=== PATIENT | female | born 1950 | race Caucasian/White ===

== ENCOUNTER 2022-05-03 09:45 | Outpatient (RCR) | payer MEDICARE, BC, SELFPAY | END 2022-12-07 14:20 | disposition home or self-care (01) | PROVIDERS: PCP Family Medicine; Visit Provider Family Medicine | DX: M25.561 Pain in right knee (principal); G89.29 Other chronic pain; Z51.89 Encounter for other specified aftercare | CPT/HCPCS: 97110; 97140; 97162 ==

== ENCOUNTER 2022-05-17 11:56 | Day surgery (SDC) | payer MEDICARE, BC, SELFPAY ==
[2022-05-17] MEDS: TETRACAINE 0.5% OPHTH 1 DROP EYE-RIGHT ×2 (12:11→12:15)
[2022-05-17] MEDS: KETOROLAC OPHTH 0.5% 1 DROP EYE-RIGHT ×2 (12:14→12:18)
[2022-05-17 12:21] VITALS: BMI 25.3
[2022-05-17 12:24] VITALS: BP 130/69; PULSE 70; RESP 18; TEMP 36.6; O2SAT 98
[2022-05-17] MEDS: SODIUM CHLORIDE 0.9 % (FLUSH) 10 ML SYRINGE IVF (12:24)
[2022-05-17] MEDS: TETRACAINE 0.5% OPHTH 2 DROP EYE-RIGHT (12:47)
[2022-05-17] MEDS: BALANCED SALT IRRIG SOLN 15 ML EYE-RIGHT (12:53)
--- NOTE | 2022-05-17 13:01 | W.ANESCHARGE ---
Anesthesia Charges Start Date/Time Anesthesia Start Date: 05/17/22 Anesthesia Start Time: 12:44 Stop Date/Time Anesthesia Stop Date: 05/17/22 Anesthesia Stop Time: 13:15 Summary Emergency: No Extremes of Age: Over 68-CPT 70612
[2022-05-17 13:17] VITALS: BP 119/71; PULSE 57; RESP 16; TEMP 36.1; O2SAT 99
--- NOTE | 2022-05-17 15:13 | P.PCN_ITS ---
Procedure Note Date Seen: 05/17/22 Will [facility] bill your pro fee for this procedure?: Yes Procedure Description: SURGEON: Melissa Garcia MD PREOPERATIVE DIAGNOSIS: Nuclear sclerotic cataract, right eye. POSTOPERATIVE DIAGNOSIS: Nuclear sclerotic cataract, right eye. NAME OF OPERATION: Phacoemulsification of cataract with posterior chamber intraocular lens implantation in the right eye. ANESTHESIA: Topical. ESTIMATED BLOOD LOSS: Less than 2 cc. COMPLICATIONS: None. PATHOLOGY SPECIMEN: None. INDICATIONS: See consult note for details. The risks, benefits and alternatives of the procedure were explained to the patient, who elected to proceed and signed informed consent to do so. PROCEDURE: The patient was brought to the pre-holding area where the right eye was identified as the operative eye. I placed my initials above this eye. The patient received eye drops consisting of 0.5% tetracaine, 1% tropicamide, 10% phenylephrine, and 0.5% ketorolac. The patient was then brought to the operating room where the right eye was again identified as the operative eye. The eye was prepped with Betadine and draped in the usual sterile ophthalmic fashion. A #15 super-sharp blade was used to create a paracentesis site. 1% non-preserved intracameral lidocaine was injected into the anterior chamber. Endocoat was injected into the anterior chamber. A 2.4 mm keratome was used to create a three-plane self-sealing incision 1 mm anterior to the temporal limbus. A cystotome was used to create an anterior capsular leaflet. The Utrata forceps were used to extend this to form a continuous curvilinear capsulorrhexis. Hydrodissection was performed. The cataract was removed with phacoemulsification using the rtmado-mqa-eqysypv technique. The irrigation and aspiration tip was used to remove the remaining cortex. Healon was injected into the capsular bag. An CHERRIE ZCB00 intraocular lens of 22.0 diopters was injected into the capsular bag. The irrigation and aspiration tip was used to remove the remaining viscoelastic. Balanced salt solution on a cannula was used to hydrate the wound, and the wound was found to be watertight. The pupil was noted to be round. DISPOSITION: The patient was taken to the recovery room and discharged to home in stable condition. The patient was instructed to call me or go to the emergency department with any sudden change, including dramatic loss of vision, severe pain in the eye or eyebrow region, nausea, or vomiting. The patient will follow up in the clinic tomorrow morning. Surgeon: eMlissa Garcia MD
== END 2022-05-17 13:45 | disposition home or self-care (01) ==
PROVIDERS: PCP Family Medicine; Visit Provider Ophthalmology
PROC: (CPT 66984; principal; 2022-05-17 12:00)
DX: H25.11 Age-related nuclear cataract, right eye (principal)
CPT/HCPCS: 66984; 00142; 99100; A9270; J2250; J2405; J3010; V2632

== ENCOUNTER 2022-05-31 11:18 | Day surgery (SDC) | payer MEDICARE, BC, SELFPAY ==
[2022-05-31] MEDS: BALANCED SALT IRRIG SOLN 15 ML EYE-LEFT (12:00)
[2022-05-31] MEDS: TETRACAINE 0.5% OPHTH 2 DROP EYE-LEFT (12:00)
[2022-05-31] MEDS: TETRACAINE 0.5% OPHTH 1 DROP EYE-LEFT ×2 (12:00→12:05)
[2022-05-31] MEDS: KETOROLAC OPHTH 0.5% 1 DROP EYE-LEFT ×2 (12:00→12:05)
[2022-05-31 12:14] VITALS: BP 126/68; PULSE 72; RESP 16; TEMP 36.7; O2SAT 100
[2022-05-31] MEDS: SODIUM CHLORIDE 0.9 % (FLUSH) 10 ML SYRINGE IVF (12:20)
[2022-05-31 12:21] VITALS: BMI 25.3
--- NOTE | 2022-05-31 13:17 | PM.PROC ---
Procedure Note Date Seen: 05/31/22 Will [facility] bill your pro fee for this procedure?: Yes Procedure Description: SURGEON: Melissa Garcia MD PREOPERATIVE DIAGNOSIS: Nuclear sclerotic cataract, left eye. POSTOPERATIVE DIAGNOSIS: Nuclear sclerotic cataract, left eye. NAME OF OPERATION: Phacoemulsification of cataract with posterior chamber intraocular lens implantation in the left eye. ANESTHESIA: Topical. ESTIMATED BLOOD LOSS: Less than 2 cc. COMPLICATIONS: None. PATHOLOGY SPECIMEN: None. INDICATIONS: See consult note for details. The risks, benefits and alternatives of the procedure were explained to the patient, who elected to proceed and signed informed consent to do so. PROCEDURE: The patient was brought to the pre-holding area where the left eye was identified as the operative eye. I placed my initials above this eye. The patient received eye drops consisting of 0.5% tetracaine, 1% tropicamide, 10% phenylephrine, and 0.5% ketorolac. The patient was then brought to the operating room where the left eye was again identified as the operative eye. The eye was prepped with Betadine and draped in the usual sterile ophthalmic fashion. A #15 super-sharp blade was used to create a paracentesis site. 1% non-preserved intracameral lidocaine was injected into the anterior chamber. Endocoat was injected into the anterior chamber. A 2.4 mm keratome was used to create a three-plane self-sealing incision 1 mm anterior to the temporal limbus. A cystotome was used to create an anterior capsular leaflet. The Utrata forceps were used to extend this to form a continuous curvilinear capsulorrhexis. Hydrodissection was performed. The cataract was removed with phacoemulsification using the oevxoo-kqi-hmewfhp technique. The irrigation and aspiration tip was used to remove the remaining cortex. Healon was injected into the capsular bag. An CHERRIE ZCB00 intraocular lens of 22.0 diopters was injected into the capsular bag. The irrigation and aspiration tip was used to remove the remaining viscoelastic. Balanced salt solution on a cannula was used to hydrate the wound, and the wound was found to be watertight. The pupil was noted to be round. DISPOSITION: The patient was taken to the recovery room and discharged to home in stable condition. The patient was instructed to call me or go to the emergency department with any sudden change, including dramatic loss of vision, severe pain in the eye or eyebrow region, nausea, or vomiting. The patient will follow up in the clinic tomorrow morning. Surgeon: Melissa Garcia MD
[2022-05-31 13:20] VITALS: BP 123/62; PULSE 64; RESP 16; TEMP 36.2; O2SAT 97
--- NOTE | 2022-05-31 13:22 | W.ANESCHARGE ---
Anesthesia Charges Start Date/Time Anesthesia Start Date: 05/31/22 Anesthesia Start Time: 11:21 Stop Date/Time Anesthesia Stop Date: 05/31/22 Anesthesia Stop Time: 11:55 Summary Emergency: No Extremes of Age: Over 68-CPT 87085
[2022-05-31] MEDS: ACETAMINOPHEN 500 MG TABLET 1000 MG PO (13:30)
== END 2022-05-31 14:00 | disposition home or self-care (01) ==
PROVIDERS: PCP Family Medicine; Visit Provider Ophthalmology
PROC: (CPT 66984; principal; 2022-05-31 12:00)
DX: H25.12 Age-related nuclear cataract, left eye (principal)
CPT/HCPCS: 66984; 142; 99100; A9270; J2250; J3010; V2632

== ENCOUNTER 2023-09-26 10:51 | Day surgery (SDC) | payer MEDICARE, BC, SELFPAY ==
[2023-09-26] VITALS (25 sets, daily range): BP systolic 104–152; BP diastolic 53–87; PULSE 54–76; RESP 11–18; TEMP 36.1–36.6; O2SAT 94–100; BMI 27.3
[2023-09-26] MEDS: OXYCODONE (CR) 10 MG TAB.ER.12H PO (11:12)
[2023-09-26] MEDS: ACETAMINOPHEN 500 MG TABLET 1000 MG PO ×2 (11:12→18:09)
--- NOTE | 2023-09-26 11:36 | W.PM.H&PU ---
History & Physical Update History & Physical Update H&P Reviewed and patient assessed: No changes noted
--- NOTE | 2023-09-26 11:37 | CRLHL7_ITS ---
For Patients: As a result of the Century Cures Act, medical imaging exams and procedure reports are released immediately into your electronic medical record. You may view this report before your referring provider. If you have questions, please contact your health care provider. INDICATION: Follow up knee replacement. TECHNIQUE: Two views of the left knee performed portably and postoperatively. COMPARISON: Pre-surgical images June 15, 2023. FINDINGS: Left total knee arthroplasty. Patellar resurfacing. The components are adequately aligned and well seated. Air within the soft tissues and joint space related to the surgery. IMPRESSION: Postsurgical change from a left total knee arthroplasty. The components are adequately aligned and well seated. Dictated by Tello Benavides MD @ 09/27/2023 10:21:10 AM (Electronically Signed)
[2023-09-26] MEDS: LACTATED RINGERS 1000 ML 1,000 ML 100 ML IV ×2 (12:00→14:17)
--- NOTE | 2023-09-26 12:19 | SUR.PREOP ---
TIME?OUT:?1221 PT/RN/MDA?VERIFICATION?OF?SURGICAL?SITE,?PROCEDURE,?AND?CONSENT OBTAINED?PRIOR?TO?INVASIVE?PROCEDURE.
[2023-09-26] MEDS: MIDAZOLAM HCL 1 MG/ML inj IVP (12:23)
[2023-09-26] MEDS: fentaNYL 100 MCG/2 ML inj IVP (12:26)
--- NOTE | 2023-09-26 12:35 | P.NB_ITS ---
Nerve Block Nerve Block Time Seen by Provider: 12:25 Date Seen: 09/26/23 Type of block requested by surgeon for post-operative analgesia: adductor canal Side: left Time out performed: Yes Verification of patient name: Yes Verification of date of : Yes Site marking: site marked Name of person performing procedure: Gomez Continuous monitoring Was continuous monitoring of O2 sat, B/P, electronic device monitor, recorded every 15 minutes?: Yes Procedure Checklist: sterile prep, needles and gloves Ultrasound guided. Images saved: Yes Medications given in 5ml increments after negative aspiration: Ropivicaine %: 0.5 mL: 20 Needle gauge: 20 Decadron (mg): 10 Precedex (mcg): 25 Patient tolerated procedure well: Yes Additional comments: Needle noted adjacent to nerve Block Charges Block Charge (with Pro Fee): Femoral Nerve Use of Ultrasound Machine for Block: Yes- US Guidance/pain block
--- NOTE | 2023-09-26 12:36 | W.PM.NB ---
Nerve Block Nerve Block Time Seen by Provider: 12:25 Date Seen: 09/26/23 Type of block requested by surgeon for post-operative analgesia: geniculars Side: left Time out performed: Yes Verification of patient name: Yes Verification of date of : Yes Site marking: site marked Name of person performing procedure: Gomez Continuous monitoring Was continuous monitoring of O2 sat, B/P, environmental monitoring specialist, recorded every 15 minutes?: Yes Procedure Checklist: sterile prep, needles and gloves Medications given in 5ml increments after negative aspiration: Ropivicaine %: 0.5 mL: 9 Needle gauge: 25 Patient tolerated procedure well: Yes Block Charges Block Charge (with Pro Fee): Genicular Nerve Block Use of Ultrasound Machine for Block: No
--- NOTE | 2023-09-26 12:36 | W.ANESCHARGE ---
Anesthesia Charges Start Date/Time Anesthesia Start Date: 09/26/23 Anesthesia Start Time: 13:32 Stop Date/Time Anesthesia Stop Date: 09/26/23 Anesthesia Stop Time: 15:27 Summary Extremes of Age - Over 70 or under 1: MDA
[2023-09-26] MEDS: CEFAZOLIN 2 GM in 0.9 % SODIUM CHLORIDE Mini-bag 100 ML IVPB ×2 (13:51→18:09)
[2023-09-26] MEDS: TRANEXAMIC ACID 100 MG/ML INJ 1000 MG IV (13:51)
--- NOTE | 2023-09-26 14:47 | PM.ORPRC ---
Procedure Note Date of procedure: 09/26/23 Procedure: PREOPERATIVE DIAGNOSIS: 1. Left knee osteoarthritis, primary, severe POSTOPERATIVE DIAGNOSIS: 1. Left knee osteoarthritis, primary, severe PROCEDURE: 1. Left total knee arthroplasty SURGEON: Jamil Browne MD. RECORD PRESSMAN: AMADO Saba - Of note, a skilled equal opportunity assistant was critical for this case to aid in patient positioning, tissue retraction, limb manipulation/positioning, and closure. ANESTHESIA: Spinal anesthetic EBL: 50ml IMPLANTS: DePuy J&J all cemented TKA - Attune PS femur size 6 narrow, size 4 tibia, 5 poly spacer, 38 mm patella TOURNIQUET: 90 min at 300 torr COMPLICATIONS: None evident INDICATIONS: The patient is a pleasant 73-year-old female who has experienced severe left knee pain and difficulty bearing weight. Workup included x-rays which revealed severe osteoarthrosis in the knee. Given the deformity, the dysfunction, and the pain, as well as the failure of nonoperative management, recommendation was made for surgery. FINDINGS: Full-thickness chondral loss diffusely throughout the lateral compartment and patellofemoral compartment. To a lesser degree medial compartment. Large effusion upon entering the joint. DESCRIPTION OF PROCEDURE: Following a thorough discussion of risks, benefits, and alternatives consent was obtained and the left knee was marked. The patient was brought to the operating room and placed supine on the operating table. Induction of anesthesia was undertaken. 2 g IV Ancef and 1 g tranexamic acid was administered within 1 hr of incision preoperatively. Proper time-out was performed identifying proper patient, site, procedure. The operative extremity was prepped and draped in the appropriate sterile fashion using ChloraPrep after the patient was positioned supine with all bony prominences well padded. A longitudinal, anterior, midline skin incision was made starting approximately 3cm proximal to the superior pole of the patella and advanced distal to the tibial tubercle. A median parapatellar arthrotomy was created. A medial subperiosteal sleeve was created with knife, baeza elevator and curved osteotome. The retropatellar fatpad was resected and the synovium in the suprapatellar pouch excised to visualize the anterior femoral cortex. Femoral preparation was performed via an intramedullary guide. Step drill allowed access into the femoral canal. The distal cutting guide was placed with 5? of valgus and 10 mm cut on the distal femur. Femur was sized using a posterior referencing guide (although trans epicondylar access and Dayanna's line was also referenced) in 3? of external rotation. This found have a best fit with the sizing noted above. The 4 in 1 cutting block was then placed, and the distal femur shaped accordingly. The box cut was then created and the trial implant inserted to confirm appropriate fit. We turned our attention to the proximal tibia. Extramedullary guide was utilized for cutting with the goal of being 90 degree cut from the mechanical axis of the tibia in the varus/valgus plane utilizing tibial crest as the primary alignment. Initially a 2 mm resection was performed from the medial tibial plateau. Ultimately, balancing was achieved in both flexion and extension in both varus and valgus. The knee was able to achieve full extension as well comfortably. The patella was initially measured and found have a thickness of 20 mm. It was resected back to approximately 14 mm. It was sized to be a best fit with as noted above. This was drilled, trial placed. All trials were placed and found to have an excellent stability and balance. At this stage, trial implants were removed, the knee was thoroughly irrigated with normal saline, and the cement was mixed. After irrigation, the knee was thoroughly dried, and cement placed, with the real tibial and femoral implants placed along with the patella. Trial poly spacer was placed and confirmed to have excellent range of motion and full extension, and the real poly spacer opened and inserted. All extra cement was removed, and a 3 min Betadine soak performed. Finally, a final irrigation round with normal saline was performed. Closure performed with 0 PDS and #0 Stratafix for the quad tendon/retinaculum. 2-0 Vicryl/Stratafix for the subcutaneous and 4-0 Monocryl for subcuticular closure. Dressings were applied and the patient was awoken from anesthesia after the tourniquet deflated and transferred the PACU in stable condition. A skilled equal opportunity assistant was critical for this case to aid in patient positioning, tissue retraction, bone exposure, limb manipulation/positioning, patient safety, and closure. PLAN: 1. Weight bear as tolerated operative extremity. 2. 23 hr perioperative antibiotics. 3. Ice. 4. PT/OT consults for ambulation assistance/mobility education. 5. Social work consult for discharge planning. 6. DVT prophylaxis with at SCDs, Ancelmo Hose, and aspirin twice daily.
--- NOTE | 2023-09-26 15:26 | P.ANES_ITS ---
Anesthesia Charges Start Date/Time Anesthesia Start Date: 09/26/23 Anesthesia Start Time: 13:32 Stop Date/Time Anesthesia Stop Date: 09/26/23 Anesthesia Stop Time: 15:27 Summary Extremes of Age - Over 70 or under 1: [employer]
[2023-09-26] MEDS: LACTATED RINGERS 1000 ML 1,000 ML 75 ML IV (17:04)
--- NOTE | 2023-09-26 18:52 | PM.IMCN1 ---
Date of Consult Patient: Janie Patient Consult date: 09/26/23 Requesting Physician: Orthopedics Primary Care Provider: Regina Vee, Consult Narrative Narrative: Camille Herman is a 73 year old female admitted to the hospital for left total knee arthroplasty. Procedures performed by Dr. Browne. There were no complications. Postoperatively she reports being quite chilled and is being warmed with a Latisha Hugger. She has also had nausea without vomiting. Pain control is currently adequate. She reports preoperatively she was doing well. She had a recent upper respiratory illness with nasal congestion rhinorrhea and cough. She had no fever. She reports feeling much better from that prior to surgery. No previous problems with surgery or anesthesia. Review of Systems Narrative: Recent URI is largely resolved otherwise no recent illness PFSH [facility] Medical History (Updated 09/26/23 @ 19:00 by Toney Luna MD) Restless legs ?G25.81 - Restless legs syndrome (ICD-10) Primary osteoarthritis of left knee ?M17.12 - Unilateral primary osteoarthritis, left knee (ICD-10) Hx of colonic polyps ?Z86.010 - Personal history of colonic polyps (ICD-10) Osteopenia of spine ?M85.88 - Other specified disorders of bone density and structure, other site (ICD-10) Atypical meningioma of brain ?D42.0 - Neoplasm of uncertain behavior of cerebral meninges (ICD-10) Hyperlipidemia ?E78.5 - Hyperlipidemia, unspecified (ICD-10) Hypertension ?I10 - Essential (primary) hypertension (ICD-10) Meningioma ?D32.9 - Benign neoplasm of meninges, unspecified (ICD-10) Surgical History S/P total left hip arthroplasty ?Z96.642 - Presence of left artificial hip joint (ICD-10) History of open reduction and internal fixation (ORIF) procedure ?Z98.890 - Other specified postprocedural states (ICD-10) Hx of colonoscopy ?Z98.890 - Other specified postprocedural states (ICD-10) Hx of section ?Z98.891 - History of uterine scar from previous surgery (ICD-10) History of back surgery ?Z98.890 - Other specified postprocedural states (ICD-10) Hx of appendectomy ?Z90.49 - Acquired absence of other specified parts of digestive tract (ICD-10) History of bilateral fallopian tube excision ?Z90.79 - Acquired absence of other genital organ(s) (ICD-10) Family History (Updated 09/26/23 @ 18:57 by Toney Luna MD) Father High blood pressure Prostate cancer Mother Osteoporosis Alzheimers disease Social History (Updated 09/26/23 @ 18:58 by Toney Luna MD) Narrative: She lives with her . She has no steps to get a into around her house. She does not smoke. She drinks 3-5 glasses of wine per week What is your current living situation?: I presently have a place to live Problems where you live: no known problems In the past 12 months, utilities in danger of being shut off: no In past 12 months, lack of transportation kept you from medical appts, meetings, work, or getting things needed for daily living: no In the past 12 mos, have been you worried that your food would run out before you had money to buy more?: never true In the past 12 mos, the food you bought just didn't last and you didn't have money to buy more?: never true Smoking Status: Never smoker How often do you have a drink containing alcohol: monthly or less AUDIT-C Alcohol total score: 1 Non-prescribed substance use: denies use Caffeine: Yes How often does anyone, including family, friends and others, physically hurt you: never How often does anyone, including family, friends and others, insult or talk down to you: never How often does anyone, including family, friends and others, threaten you with harm: never How often does anyone, including family, friends and others, scream or curse at you: never Meds Home Medications and Allergies Home Medications Medication Instructions Recorded Confirmed Type atorvastatin 20 mg tablet 20 mg PO DAILY 05/15/22 09/26/23 History cholecalciferol (vitamin D3) 25 1,000 unit PO DAILY 05/15/22 09/26/23 History mcg (1,000 unit) capsule lisinopril 5 mg tablet 5 mg PO DAILY 05/15/22 09/26/23 History acetaminophen 500 mg tablet 500 mg PO Q6H PRN 06/15/23 09/26/23 History (Tylenol Extra Strength) calcium carbonate 600 mg calcium 600 mg PO DAILY 09/26/23 09/26/23 History (1,500 mg) tablet (Calcium) ferrous sulfate 325 mg (65 mg 325 mg PO Q7D 09/26/23 09/26/23 History iron) tablet (FeroSul) Allergies Allergy/AdvReac Type Severity Reaction Status Date / Time No Known Allergies Allergy Unknown Verified 06/15/23 09:12 Exam Narrative: Exam Narrative: She is alert and appears in no distress. Oropharynx normal. Neck is supple without mass or adenopathy. Respirations are clear to auscultation. Cardiovascular: S1, S2, regular rate and rhythm. No murmur gallop or rub. Abdomen: Bowel sounds active. Abdomen is soft without tenderness or mass. Lower extremities without edema. Intact pulses sensation and strength in her feet and ankles. Const: Vital Signs, click to edit/add: Vital Signs - 24 hr 09/26/23 12:00 09/26/23 12:20 09/26/23 12:25 Temperature 97.8 F Pulse Rate 69 64 69 Respiratory Rate 16 16 16 Blood Pressure 148/77 H 152/87 H 145/62 H Pulse Oximetry 97 100 98 Oxygen Delivery Me thod Room Air Nasal Cannula Nasal Cannula Oxygen Flow Rate 3 3 09/26/23 12:30 09/26/23 12:40 09/26/23 12:50 Temperature Pulse Rate 61 70 60 Respiratory Rate 14 14 14 Blood Pressure 135/60 122/59 L 120/65 Pulse Oximetry 99 99 98 Oxygen Delivery Me thod Nasal Cannula Nasal Cannula Nasal Cannula Oxygen Flow Rate 3 3 3 09/26/23 13:00 09/26/23 13:10 09/26/23 15:24 Temperature 96.9 F L Pulse Rate 58 L 59 L 66 Respiratory Rate 14 14 12 Blood Pressure 114/65 119/63 107/56 L Pulse Oximetry 98 99 95 Oxygen Delivery Me thod Nasal Cannula Nasal Cannula Room Air Oxygen Flow Rate 3 3 09/26/23 15:30 09/26/23 15:35 09/26/23 15:40 Temperature Pulse Rate 57 L 57 L 61 Respiratory Rate 11 L 12 14 Blood Pressure 104/53 L 106/64 112/67 Pulse Oximetry 97 98 97 Oxygen Delivery Me thod Oxygen Flow Rate 09/26/23 15:45 09/26/23 15:50 Temperature 97.0 F L Pulse Rate 55 L 54 L Respiratory Rate 12 12 Blood Pressure 122/60 114/58 L Pulse Oximetry 98 97 Oxygen Delivery Me thod Oxygen Flow Rate Documenting provider has reviewed patient's vital signs: yes Assessment and Plan Assessment and plan (1) S/P total left hip arthroplasty: Problem comment: Dr. Browne 09/26/2023 without complications Status: Acute (2) Hypothermia associated with surgery: Problem comment: Resolved with Latisha Hugger Status: Acute (3) Hypertension: Problem comment: Resume home blood pressure medications as tolerated Status: Acute Plan Patient is admitted for postoperative management of pain and disability from surgery and monitoring of chronic medical problems. Anticipate discharge to home tomorrow for outpatient follow-up. Total time spent today is 30 minutes in coordination of care and discussing with patient other providers management of postoperative cares
[2023-09-26] MEDS: OXYCODONE 5 MG TABLET PO (19:15)
[2023-09-26] MEDS: ONDANSETRON 2 MG/ML inj 4 MG IVP (20:01)
--- NOTE | 2023-09-26 20:21 | PC.NURSE ---
End of shift-- Pleasant and cooperative, alert and oriented pt. arrived from PACU at approximately 1600. VSS and pt is afebrile. SPO2 maintained >94% on RA. She rated pain as high as 2 out of 10 this evening and was given Oxycodone once in addition to scheduled Tylenol. Dressing to left knee is C/D/I and CMS WNL. Cryocuff in place. LS CTA. BS+ x4. Pt initially c/o nausea that faded quickly and again c/o nausea with ambulation. She was given Zofran with stated relief. She was up to the chair with assist of 1, belt and walker and tolerated it well. was at bedside this evening and appears loving and supportive. Report to KENNY Hernandez.
[2023-09-26] MEDS: SENNOSIDES 1 TAB TABLET 2 TAB PO (21:21)
[2023-09-26] MEDS: ASPIRIN 81 MG TABLET EC PO (21:21)
[2023-09-27] MEDS: OXYCODONE 5 MG TABLET PO ×5 (01:12→11:00)
[2023-09-27 02:00] VITALS: BP 131/68; PULSE 71; RESP 16; TEMP 36.8; O2SAT 97
[2023-09-27] MEDS: CEFAZOLIN 2 GM in 0.9 % SODIUM CHLORIDE Mini-bag 100 ML IVPB ×2 (02:33→10:08)
[2023-09-27] MEDS: ACETAMINOPHEN 500 MG TABLET 1000 MG PO (04:59)
--- NOTE | 2023-09-27 06:24 | PC.NURSE ---
END OF SHIFT NOTE: PT PLEASANT AND COOPERATIVE WITH CARES. A&Ox3. PT RATES LEFT KNEE PAIN 3-9/10 WITH RELIEF FROM ACTIVE ICE, ELEVATION, PRN MEDICATION (SEE EMAR). DRESSING TO LEFT KNEE C/D/I. PT AMBULATES TO BATHROOM WITH WALKER, GB, A1. PT VOICES CONCERN OVER PAIN MANAGEMENT WHILE AT HOME WITH HELP OF .
[2023-09-27 06:46] LABS: Hematocrit 35.5 % (33.0-51.0); Hemoglobin* 11.5 gm/dL (12.0-16.0); Immature Granulocytes Abs Auto 0.02 K/uL (0.00-0.30); Immature Granulocytes Pct Auto 0.2 %; Lymphocytes Percent Auto 8.6 % (20-44); Mean Corpuscular HGB Conc 32 gm/dL (32-36); Mean Corpuscular Hemoglobin 30 pg (26-34); Mean Corpuscular Volume 92 fL (80-100); Monocytes Percent Auto 4.3 % (0.0-11.0); Neutrophils Percent Auto 86.9 % (42.0-72.0); Platelet Count* 268 K/uL (140-440); RDW Coefficient of Variation % 12.1 % (11.5-15.5); Red Blood Count 3.85 m/uL (4.00-5.20); White Blood Count* 10.45 K/uL (4.50-11.00)
[2023-09-27 06:52] LABS: Slide Review Reflex No
[2023-09-27 07:06] LABS: Potassium* 3.9 mmol/L (3.6-5.1); Sodium* 136 mmol/L (135-149)
[2023-09-27 07:09] LABS: Creatinine* 0.4 mg/dL (0.5-1.5); Estimated Glomerular Filt Rate 103 ml/min
[2023-09-27 07:10] LABS: Blood Urea Nitrogen* 16 mg/dL (7-30)
[2023-09-27 07:50] VITALS: BP 137/70; PULSE 68; RESP 18; TEMP 36.6; O2SAT 96
[2023-09-27] MEDS: ATORVASTATIN 10 MG TABLET 20 MG PO (08:37)
[2023-09-27] MEDS: SENNOSIDES 1 TAB TABLET 2 TAB PO (08:38)
[2023-09-27] MEDS: ASPIRIN 81 MG TABLET EC PO (08:41)
[2023-09-27 08:49] VITALS: O2SAT 96
--- NOTE | 2023-09-27 09:53 | PM.ORPN ---
Subjective Subjective Date Seen: 09/27/23 Principal diagnosis: Status postop day 1 left total knee arthroplasty Interval history: Patient reports doing well. No acute events over night. Patient was having more pain initial day of surgery, which is now improved. Pain managed with scheduled and PRN medications, ice. Per staff, patient has not wanted to move much due to pain. DVT prophylaxis: 81 mg aspirin by mouth twice daily, bilateral knee high Ancelmo stockings, SCDs, walking. Denies fevers, chills, aches, N/V, CP, SOB/FINNEY, or lightheadedness. No flatus to date. Ortho Exam Narrative Exam Narrative: -Patient appears comfortable; no apparent acute distress -Alert and oriented times 3 -Operative knee mildly swollen; soft tissues supple; no ecchymosis; no erythematous streaking Warmth appropriate -Surgical dressing clean, dry, intact; no drainage -Bilateral calfs soft; no significant swelling, edema, tenderness, erythema, discoloration, warmth, or palpable cords -2+ DP/PT pulses, intact dermatomes and myotomes distally (5/5 strength) Const Vital Signs, click to edit/add: Vital Signs - 24 hr 09/26/23 12:00 09/26/23 12:20 09/26/23 12:25 Temperature 97.8 F Pulse Rate 69 64 69 Pulse Rate [Right Pulse Oximeter] Respiratory Rate 16 16 16 Blood Pressure 148/77 H 152/87 H 145/62 H Blood Pressure [Left Arm] Pulse Oximetry 97 100 98 Oxygen Delivery Method Room Air Nasal Cannula Nasal Cannula Oxygen Flow Rate 3 3 09/26/23 12:30 09/26/23 12:40 09/26/23 12:50 Temperature Pulse Rate 61 70 60 Pulse Rate [Right Pulse Oximeter] Respiratory Rate 14 14 14 Blood Pressure 135/60 122/59 L 120/65 Blood Pressure [Left Arm] Pulse Oximetry 99 99 98 Oxygen Delivery Method Nasal Cannula Nasal Cannula Nasal Cannula Oxygen Flow Rate 3 3 3 09/26/23 13:00 09/26/23 13:10 09/26/23 15:24 Temperature 96.9 F L Pulse Rate 58 L 59 L 66 Pulse Rate [Right Pulse Oximeter] Respiratory Rate 14 14 12 Blood Pressure 114/65 119/63 107/56 L Blood Pressure [Left Arm] Pulse Oximetry 98 99 95 Oxygen Delivery Method Nasal Cannula Nasal Cannula Room Air Oxygen Flow Rate 3 3 09/26/23 15:30 09/26/23 15:35 09/26/23 15:40 Temperature Pulse Rate 57 L 57 L 61 Pulse Rate [Right Pulse Oximeter] Respiratory Rate 11 L 12 14 Blood Pressure 104/53 L 106/64 112/67 Blood Pressure [Left Arm] Pulse Oximetry 97 98 97 Oxygen Delivery Method Oxygen Flow Rate 09/26/23 15:45 09/26/23 15:50 09/26/23 16:15 Temperature 97.0 F L 96.9 F L Pulse Rate 55 L 54 L Pulse Rate [Right Pulse Oximeter] 56 L Respiratory Rate 12 12 16 Blood Pressure 122/60 114/58 L Blood Pressure [Left Arm] 121/64 Pulse Oximetry 98 97 98 Oxygen Delivery Method Room Air Oxygen Flow Rate 09/26/23 16:30 09/26/23 17:00 09/26/23 17:05 Temperature 96.9 F L 96.9 F L Pulse Rate 56 L Pulse Rate [Right Pulse Oximeter] 58 L 60 Respiratory Rate 16 16 16 Blood Pressure Blood Pressure [Left Arm] 132/69 135/72 119/66 Pulse Oximetry 99 96 Oxygen Delivery Method Room Air Room Air Room Air Oxygen Flow Rate 09/26/23 17:15 09/26/23 17:45 09/26/23 18:15 Temperature 97.6 F 97.6 F Pulse Rate Pulse Rate [Right Pulse Oximeter] 62 62 73 Respiratory Rate 16 16 16 Blood Pressure Blood Pressure [Left Arm] 127/65 118/55 L 142/63 H Pulse Oximetry 97 97 97 Oxygen Delivery Method Room Air Room Air Room Air Oxygen Flow Rate 09/26/23 19:00 09/26/23 20:00 09/26/23 21:20 Temperature 97.2 F L Pulse Rate Pulse Rate [Right Pulse Oximeter] 71 76 66 Respiratory Rate 18 Blood Pressure Blood Pressure [Left Arm] 128/62 134/77 129/64 Pulse Oximetry 94 Oxygen Delivery Method Room Air Oxygen Flow Rate 09/26/23 23:00 09/26/23 23:00 09/27/23 02:00 Temperature 98.3 F Pulse Rate Pulse Rate [Right Pulse Oximeter] 66 71 Respiratory Rate 18 16 Blood Pressure Blood Pressure [Left Arm] 131/68 Pulse Oximetry 96 97 Oxygen Delivery Method Room Air Oxygen Flow Rate 09/27/23 07:50 09/27/23 08:49 Temperature 97.8 F Pulse Rate Pulse Rate [Right Pulse Oximeter] 68 Respiratory Rate 18 Blood Pressure Blood Pressure [Left Arm] 137/70 Pulse Oximetry 96 96 Oxygen Delivery Method Room Air Oxygen Flow Rate Assessment and Plan Assessment and plan (1) Status post total knee replacement, left: Problem details: Dr. Browne 09/26/2023 without complications Status: Acute (2) Hypothermia associated with surgery: Problem details: Resolved with Latisha Hugger Status: Acute (3) Hypertension: Problem details: Resume home blood pressure medications as tolerated Status: Acute Plan - Complete 23 hour perioperative antibiotics. - PT/OT consult for education and assistance. - Social work consult for discharge planning - Prescribed analgesics as needed - DVT prophylaxis: 81 mg aspirin by mouth twice daily, bilateral knee high Ancelmo Hose stockings and SCDs - Anticipation is for discharge to home with spouse, 09/27/2023 if the patient remains medically stable, pain is controlled, and they are safe with mobilization. * had a lengthy conversation with patient regarding focused therapy and diligent home exercise program to ensure good results from this left TKA. She states understanding.
--- NOTE | 2023-09-27 12:31 | PC.NURSE ---
shift note: vss stable. pt up sba/walker with steady gait. LS clr. pt instructed on dc orders. copies of dc instructions sent with pt. Belongings sent with pt after review. IV dc'd intact rt hand. Reviewed DVT s/s. Reviewed s/s of infection.
== END 2023-09-27 12:34 | disposition home or self-care (01) ==
LOC: OR 10:52 → MEDSURG 10:54
PROVIDERS: PCP Family Medicine; Visit Provider Orthopaedic Surgery Sports Medicine
PROC: (CPT 27447; principal; 2023-09-26 13:45)
DX: M17.12 Unilateral primary osteoarthritis, left knee (principal); G89.18 Other acute postprocedural pain; T88.51XA Hypothermia following anesthesia, initial encounter; I10 Essential (primary) hypertension
CPT/HCPCS: 27447; 01402; 36415; 64447; 64454; 73560; 76942; 82565; 84132; 84295; 84520; 85025; 97110; 97116; 97161; 97165; 97535; 99100; A9270; C1776; J0690; J1100; J2250; J2405; J2704; J2795; J3010; J7120

== ENCOUNTER 2023-12-12 12:30 | Outpatient (RCR) | payer MEDICARE, BC, SELFPAY ==
--- NOTE | 2023-09-19 12:17 | PT.OPEX ---
[facility] Eval initial evaluation -requires signature [facility] Start: 09/19/23 07:31 Freq: Status: Active Protocol: Document 09/19/23 07:33 GABRIELLE (Rec: 09/19/23 12:13 GABRIELLE [id number]) E-signed By Bunny Marks DPT Physical Therapy Outpatient Evaluation Insurance Information Recert Due Date 12/13/23 Insurance Name Medicare B Medical Diagnosis left TKA Left knee OA Treating Diagnosis L knee pain muscle weakness Referring MD Subjective Subjective Camille comes into clinic today for her pre op visit prior to her L TKA on 09/26/23. States the knee has been bugging her for awhile with walking and stairs have been the most troublesome, also has a hard time getting off the floor when playing with her grandchildren. Also notices limitations with incline walking. Lives in a one level home with her who will be helping after surgery. Date of Surgery (If applicable) 09/26/23 Current Work Status Retired Objective Other/Pertinent Objective GAIT/FUNCTIONAL MOBILITY ambulates with decreased pace in antalgic gait pattern increased UE support to perform sit to stands KNEE ROM L 6-115 LLE MMT: SLR flexion: performs with 3-5 degree extensor lag quad set: limited due to pain but can perform with moderate strength contraction. Assessment Assessment/Impression Pt is a 73yr old female who presents with concerns of L knee pain. Signs and symptoms likely indicating / consistent with OA. Patient also has notable objective findings including limited ROM, impaired balance, decreased strength also likely contributing to the problem. Patient is a good candidate for skilled therapy to target deficits described above. Skilled PT intervention is necessary for use of therapeutic exercise manual therapy, neuromuscular re- education, gait training, and therapeutic activity. Functional impairments include difficulty with: floor transfers walking standing stairs . See appropriate sections of PT eval for complete list of goals and POC . D/C plan and criteria is for pt to achieve the goals as listed below or until max rehab potential is met. Pt was agreeable with plan of care and goals established. Plan of Care Rehabilitation Potential Good Physical Therapy Goals TKA GOALS STG (within 5weeks ) 1) Pt will improve knee AROM at least 0 to 90 for improved sit to stand transfers 2) Pt will demonstrate negative extensor lag during straight leg raise exercise with ability to complete at least 15 reps with 5 sec hold to improve strength for ambulation 3) Patient will demonstrate/ report ability to walk for 15- 20 minutes w/SPC with pain level <1/10, to allow for community and household ambulation. LTG: (within 10 weeks) 1) Pt will be indep with HEP for residential management of pain/symptoms 2) Pt will improve knee AROM at least 0-120 for improved sit to stand transfers 3) Patient will ascend/descend at least 12 steps using single rail and reciprocal pattern to improve ease of mobility at home/community 4) Patient will demonstrate/ report ability to walk for 15- 20 minutes w/o AD with pain level <1/10, to allow for community and household ambulation. Coordination/Communication With Referral Source Treatment Plan/Direct Interventions Gait Training,Joint Mobilization,Manual Therapy, Self-Care/Home Management, Therapeutic Activities, Therapeutic Exercises Frequency/Duration 1-2 visits a week for 6-12 weeks Patient Will Be Discharged From Therapy Completion of LTG(s), Independent w/HEP Evaluation Billing Untimed Code Treatment Minutes 20 Complexity Low Certification Information Physician Comment/Change : Physician NPI Number #
--- NOTE | 2023-10-26 11:00 | PT.OPDNX ---
PT [facility] Daily Note PROGRESS NOTE PLEASE SIGN/PLEASE PROVIDE ORDER FOR ADDITIONAL 12 VISITS PER PATIENT REQUEST PT [facility] Daily Note Start: 09/19/23 07:31 Freq: Status: Active Protocol: Document 10/26/23 07:29 GABRIELLE (Rec: 10/26/23 11:00 GABRIELLE [id number]) E-signed By Bunny Marks DPT PT OP Daily Progress Note Visit Information Note Type Daily Note,Recert/Progress Note Visit Number 10 Insurance Information Recert Due Date 12/13/23 Insurance Name Medicare B Medical Diagnosis left TKA Left knee OA Treating Diagnosis L knee pain muscle weakness Referring MD Subjective Subjective Camille comes into clinic saying she is more sore after last visit overall , did have a couple nights better sleep. Does have some questions for me about her scar tissue and the 'ripping' sound from last visit. Home Exercise Home Exercise Comments [id number] Objective Other/Pertinent Objective KNEE AROM L 2-107,116 with op SLR flexion x 12- 5 degree extensor lag SAQ- needing increased hip flexion movement ot complete movement ambulates without AD, decreased pace, mild antalgic pattern Patient Instructed in Risks/Benefits Yes Therapeutic Exercise Therapeutic Exercise Minutes (minutes) 30 Therapeutic Exercise: To Restore nu step x 15 min lvl2-4 Functional Status resistance heel slides x 15 slr flexion x 12 knee ext stretch x 3 min saq x 15 hip add iso x 12 Manual Therapy Techniques Manual Therapy Minutes (minutes) 15 Manual Therapy Techniques STM quad adductors hamstring Pt PROM into flexion and extension Treatment Minutes Untimed Code Treatment Minutes 4 Timed Code Treatment Minutes 45 Total Treatment Time 49 Billing Units Manual Therapy Units 1 Therapeutic Activity Units 2 Assessment/Impression Assessment/Impression Patient is a 73 year old female that presents with L TKA. Patient has shown objective improvement in PT demonstrating decreased pain, increased range of motion, increased strength, and increased tolerance to activity. Patient continues to present with pain, decreased ROM, decreased strength, and decreased tolerance to activity. Patient would benefit from continued skilled PT services to address these issues and to maximize function. Plan of Care Physical Therapy Goals TKA GOALS STG (within 5weeks ) 1) Pt will improve knee AROM at least 0 to 90 for improved sit to stand transfers nm 2) Pt will demonstrate negative extensor lag during straight leg raise exercise with ability to complete at least 15 reps with 5 sec hold to improve strength for ambulation nm 3) Patient will demonstrate/ report ability to walk for 15- 20 minutes w/SPC with pain level <1/10, to allow for community and household ambulation.- met LTG: (within 10 weeks) 1) Pt will be indep with HEP for emt intermediate management of pain/symptoms 2) Pt will improve knee AROM at least 0-120 for improved sit to stand transfers 3) Patient will ascend/descend at least 12 steps using single rail and reciprocal pattern to improve ease of mobility at home/community 4) Patient will demonstrate/ report ability to walk for 15- 20 minutes w/o AD with pain level <1/10, to allow for community and household ambulation. Daily Plan of Care Continue per POC Discharge Note Date of First Visit for Therapy 09/19/23 Initial Primary Functional Limitations walking standing stairs Initial Pain Level 5-8/10
== END 2024-02-13 17:35 | disposition home or self-care (01) ==
PROVIDERS: PCP Family Medicine; Visit Provider Orthopaedic Surgery Sports Medicine
DX: M17.12 Unilateral primary osteoarthritis, left knee (principal); Z96.652 Presence of left artificial knee joint; Z51.89 Encounter for other specified aftercare
CPT/HCPCS: 97110; 97112; 97140; 97161; 97530; 97535

== ENCOUNTER 2024-07-18 07:21 | Outpatient (CLI) | payer MEDICARE, BC, SELFPAY ==
--- NOTE | 2024-07-18 12:53 | W.ANESCHARGE ---
Anesthesia Charges Start Date/Time Anesthesia Start Date: 07/18/24 Anesthesia Start Time: 13:04 Stop Date/Time Anesthesia Stop Date: 07/18/24 Anesthesia Stop Time: 13:35 Summary Extremes of Age - Over 70 or under 1: MDA
--- NOTE | 2024-07-18 13:36 | W.ANESCHARGE ---
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
== END 2024-07-18 07:22 | disposition home or self-care (01) ==
LOC: OP CLINIC 07:22
PROVIDERS: PCP Family Medicine; Visit Provider Internal Medicine Gastroenterology
DX: Z12.11 Encounter for screening for malignant neoplasm of colon (principal); Q43.8 Other specified congenital malformations of intestine; K57.30 Diverticulosis of large intestine without perforation or abscess without bleeding; Z86.0100 Personal history of colon polyps, unspecified
CPT/HCPCS: 00811; 00812; 45378; 99100; A9270; J2704

== ENCOUNTER 2024-09-22 08:42 | Day surgery (SDC) | payer MEDICARE, BC, SELFPAY ==
[2024-09-22] VITALS (23 sets, daily range): BP systolic 86–165; BP diastolic 44–98; PULSE 50–74; RESP 14–18; TEMP 36.1–36.6; O2SAT 96–100; BMI 27.0
--- NOTE | 2024-09-22 09:00 | W.PM.H&PU ---
History & Physical Update History & Physical Update H&P Reviewed and patient assessed: No changes noted
[2024-09-22] MEDS: OXYCODONE (CR) 10 MG TAB.ER.12H PO (09:05)
[2024-09-22] MEDS: ACETAMINOPHEN 500 MG TABLET 1000 MG PO ×3 (09:05→21:41)
[2024-09-22] MEDS: LACTATED RINGERS 1000 ML 1,000 ML 100 ML IV (09:10)
[2024-09-22] MEDS: SODIUM CHLORIDE 0.9 % (FLUSH) 10 ML SYRINGE IVF (09:16)
[2024-09-22] MEDS: MIDAZOLAM HCL 1 MG/ML inj IVP (09:55)
[2024-09-22] MEDS: fentaNYL 100 MCG/2 ML inj IVP (09:55)
[2024-09-22] MEDS: CEFAZOLIN 2 GM in 0.9 % SODIUM CHLORIDE Mini-bag 100 ML IVPB (10:10)
[2024-09-22] MEDS: TRANEXAMIC ACID 100 MG/ML INJ 1000 MG IV (10:11)
--- NOTE | 2024-09-22 10:15 | SUR.PREOP ---
TIME?OUT:?0955 PT/luanne goff RN/eun trent MDA?VERIFICATION?OF?SURGICAL?SITE,?PROCEDURE,?AND?CONSENT OBTAINED?PRIOR?TO?INVASIVE?PROCEDURE.
--- NOTE | 2024-09-22 10:20 | CRLHL7_ITS ---
For Patients: As a result of the Cures Act, medical imaging exams and procedure reports are released immediately into your electronic medical record. You may view this report before your referring provider. If you have questions, please contact your health care provider. Indication: Postop Technique: Two views right knee Findings/Impression: Hardware from a right total knee arthroplasty is in satisfactory position. Bone alignment is normal. No sign of acute fracture. Postop changes are within normal limits. Dictated by Devang Rinaldi MD @ 09/22/2024 12:41:21 PM (Electronically Signed)
--- NOTE | 2024-09-22 11:01 | W.PM.NB ---
Nerve Block Nerve Block Time Seen by Provider: 10:00 Date Seen: 09/22/24 Type of block requested by surgeon for post-operative analgesia: adductor canal Side: right Time out performed: Yes Verification of patient name: Yes Verification of date of : Yes Site marking: site marked Name of person performing procedure: Gomez Continuous monitoring Was continuous monitoring of O2 sat, B/P, cork tile floor layer, recorded every 15 minutes?: Yes Procedure Checklist: sterile prep, needles and gloves Ultrasound guided. Images saved: Yes Medications given in 5ml increments after negative aspiration: Marcaine %: 0.25 mL: 13 Needle gauge: 20 and Exparel mL: 7 Precedex (mcg): 25 Patient tolerated procedure well: Yes Block Charges Block Charge (with Pro Fee): Femoral Nerve Use of Ultrasound Machine for Block: Yes- US Guidance/pain block
--- NOTE | 2024-09-22 11:02 | P.NB_ITS ---
Nerve Block Nerve Block Time Seen by Provider: 10:00 Date Seen: 09/22/24 Type of block requested by surgeon for post-operative analgesia: geniculars Side: right Time out performed: Yes Verification of patient name: Yes Verification of date of : Yes Site marking: site marked Name of person performing procedure: Gomez Continuous monitoring Was continuous monitoring of O2 sat, B/P, denture laboratory technician, recorded every 15 minutes?: Yes Procedure Checklist: sterile prep, needles and gloves Ultrasound guided. Images saved: Yes Medications given in 5ml increments after negative aspiration: Marcaine %: 0.25 mL: 6 Needle gauge: 25 and Exparel mL: 3 Patient tolerated procedure well: Yes Block Charges Block Charge (with Pro Fee): Genicular Nerve Block
--- NOTE | 2024-09-22 11:02 | W.ANESCHARGE ---
Anesthesia Charges Start Date/Time Anesthesia Start Date: 09/22/24 Anesthesia Start Time: 10:06 Stop Date/Time Anesthesia Stop Date: 09/22/24 Anesthesia Stop Time: 11:58 Summary Extremes of Age - Over 70 or under 1: MDA
--- NOTE | 2024-09-22 11:25 | PM.ORPRC ---
Procedure Note Date of procedure: 09/22/24 Procedure: PREOPERATIVE DIAGNOSIS: 1. Right knee osteoarthritis, primary, severe POSTOPERATIVE DIAGNOSIS: 1. Right knee osteoarthritis, primary, severe PROCEDURE: 1. Right total knee arthroplasty - subvastus SURGEON: Jamil Browne MD. HARVESTING SUPERVISOR: AMADO Saba - Of note, a skilled diversional therapist's assistant was critical for this case to aid in patient positioning, tissue retraction, limb manipulation/positioning, and closure. ANESTHESIA: Spinal anesthetic IMPLANTS: DePuy J&J all cemented TKA - Attune PS femur size 6 narrow Size 5 tibia 5 poly spacer 38 mm patella TOURNIQUET: 90 min at 300 torr EBL: 50 ml COMPLICATIONS: None evident INDICATIONS: The patient is a pleasant 74-year-old female who has experienced severe right knee pain and difficulty bearing weight. Workup included x-rays which revealed severe osteoarthrosis in the knee. Given the deformity, the dysfunction, and the pain, as well as the failure of nonoperative management, recommendation was made for surgery. FINDINGS: Full-thickness chondral loss diffusely throughout the lateral compartment. To lesser degree medial and patellofemoral compartments. Grooving to the lateral femoral condyle and lateral tibial plateau. Degenerative lateral and medial meniscus pathology (lateral greater). Moderate effusion upon entering the joint. DESCRIPTION OF PROCEDURE: Following a thorough discussion of risks, benefits, and alternatives consent was obtained and the right knee was marked. The patient was brought to the operating room and placed supine on the operating table. Induction of anesthesia was undertaken. 1 g IV Ancef and 1 g tranexamic acid was administered within 1 hr of incision preoperatively. Proper time-out was performed identifying proper patient, site, procedure. The operative extremity was prepped and draped in the appropriate sterile fashion using ChloraPrep after the patient was positioned supine with all bony prominences well padded. A longitudinal, anterior, midline skin incision was made starting approximately 3cm proximal to the superior pole of the patella and advanced distal to the tibial tubercle. A subvastus approach was utilized. A medial subperiosteal sleeve was created with knife, baeza elevator and curved osteotome. The retropatellar fatpad was resected and the synovium in the suprapatellar pouch excised to visualize the anterior femoral cortex. Femoral preparation was performed via an intramedullary guide. Step drill allowed access into the femoral canal. The distal cutting guide was placed with 5? of valgus and 10 mm cut on the distal femur. The Femur was sized using a anterior referencing guide in 3? of external rotation (although trans epicondylar axis and Whitesides line was also referenced). This found have a best fit with the sizing noted above. The 4 in 1 cutting block was then placed, and the distal femur shaped accordingly. The box cut was then created and the trial implant inserted to confirm appropriate fit. We turned our attention to the proximal tibia. Extramedullary guide was utilized for cutting with the goal of being 90 degree cut from the mechanical axis of the tibia in the varus/valgus plane utilizing tibial crest as the primary alignment. Initially a 3 mm resection was performed from the medial tibial plateau. An additional 2mm did require resection to achieve appropriate balance. Ultimately, balancing was achieved in both flexion and extension in both varus and valgus. The knee was able to achieve full extension as well comfortably. The patella was initially measured and found have a thickness of 21.5 mm. It was resected back to approximately 14 mm. It was sized to be a best fit with as noted above. This was drilled, trial placed. All trials were placed and found to have an excellent stability and balance. At this stage, trial implants were removed, the knee was thoroughly irrigated with normal saline, and the cement was mixed. After irrigation, the knee was thoroughly dried, and cement placed, with the real tibial and femoral implants placed along with the patella. Trial poly spacer was placed and confirmed to have excellent range of motion and full extension, and the real poly spacer opened and inserted. All extra cement was removed, and a 3 min Betadine soak performed. Finally, a final irrigation round with normal saline was performed. Closure performed with 0 Vicryl and #0 Stratafix for the quad tendon/retinaculum. 2-0 Vicryl for the subcutaneous and 4-0 Stratafix for subcuticular closure. Dressings were applied and the patient was awoken from anesthesia after the tourniquet deflated and transferred the PACU in stable condition. A skilled diversional therapist's assistant was critical for this case to aid in patient positioning, tissue retraction, bone exposure, limb manipulation/positioning, patient safety, and closure. PLAN: 1. Weight bear as tolerated operative extremity. 2. 23 hr perioperative antibiotics. 3. Ice. 4. PT/OT consults for ambulation assistance/mobility education. 5. Social work consult for discharge planning. 6. DVT prophylaxis with at SCDs and aspirin twice daily.
--- NOTE | 2024-09-22 12:00 | W.ANESCHARGE ---
Anesthesia Charges Start Date/Time Anesthesia Start Date: 09/22/24 Anesthesia Start Time: 10:06 Stop Date/Time Anesthesia Stop Date: 09/22/24 Anesthesia Stop Time: 11:58
[2024-09-22] MEDS: OXYCODONE 5 MG TABLET PO ×3 (14:18→21:40)
[2024-09-22] MEDS: LACTATED RINGERS 1000 ML 1,000 ML 75 ML IV (14:18)
[2024-09-22] MEDS: CEFAZOLIN 1 GM in 0.9 % SODIUM CHLORIDE Mini-bag 100 ML IVPB (16:10)
--- NOTE | 2024-09-22 16:42 | P.IMCN_ITS ---
Date of Consult Patient: Janie Patient Consult date: 09/22/24 Requesting Physician: Orthopedics Primary Care Provider: Regina Vee, DO Consult Narrative Reason for consult: HTN, hyperlipidemia, h/o meningioma Narrative: Camille Herman is a 74 year old female with a remote history of meningioma that was resected, hypertension, hyperlipidemia, and hypothermia after surgery who underwent elective right total knee arthroplasty today by Dr. Browne. She is doing well and has no complaints. Review of Systems Status of ROS: Reports: 6 or more systems reviewed and unremarkable except as noted in History and below [facility] Medical History (Updated 09/22/24 @ 17:28 by Felicitas Moya MD) Hypothermia associated with surgery ?T88.8XXA - Other specified complications of surgical and medical care, not elsewhere classified, initial encounter (ICD-10) ?T68.XXXA - Hypothermia, initial encounter (ICD-10) Osteoarthritis of right knee ?M17.11 - Unilateral primary osteoarthritis, right knee (ICD-10) Restless legs ?G25.81 - Restless legs syndrome (ICD-10) Primary osteoarthritis of left knee ?M17.12 - Unilateral primary osteoarthritis, left knee (ICD-10) Hx of colonic polyps ?Z86.010 - Personal history of colonic polyps (ICD-10) Osteopenia of spine ?M85.88 - Other specified disorders of bone density and structure, other site (ICD-10) Hyperlipidemia ?E78.5 - Hyperlipidemia, unspecified (ICD-10) Hypertension ?I10 - Essential (primary) hypertension (ICD-10) Meningioma ?D32.9 - Benign neoplasm of meninges, unspecified (ICD-10) Surgical History (Updated 09/22/24 @ 17:27 by Felicitas Moya MD) Status post total knee replacement, right ?Z96.651 - Presence of right artificial knee joint (ICD-10) H/O craniotomy ?Z98.890 - Other specified postprocedural states (ICD-10) Status post total knee replacement, left (09/26/23) ?Z96.652 - Presence of left artificial knee joint (ICD-10) History of open reduction and internal fixation (ORIF) procedure ?Z98.890 - Other specified postprocedural states (ICD-10) Hx of colonoscopy ?Z98.890 - Other specified postprocedural states (ICD-10) Hx of section (~1987) ?Z98.891 - History of uterine scar from previous surgery (ICD-10) History of back surgery (~1998) ?Z98.890 - Other specified postprocedural states (ICD-10) Hx of appendectomy ?Z90.49 - Acquired absence of other specified parts of digestive tract (ICD- 10) History of bilateral fallopian tube excision ?Z90.79 - Acquired absence of other genital organ(s) (ICD-10) Family History Father High blood pressure Prostate cancer Mother Osteoporosis Alzheimers disease Social History (Updated 09/22/24 @ 17:11 by Felicitas Moya MD) 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 She lives with her . She has no steps to get a into around her house. She does not smoke. She drinks 3- 5 glasses of wine per week. What is your current living situation?: I presently have a place to live Problems where you live: no known problems In the past 12 months, utilities in danger of being shut off: no In past 12 months, lack of transportation kept you from medical appts, meetings, work, or getting things needed for daily living: no In the past 12 mos, have been you worried that your food would run out before you had money to buy more?: never true In the past 12 mos, the food you bought just didn't last and you didn't have money to buy more?: never true Smoking Status: Never smoker How often do you have a drink containing alcohol: 2-3 times a week AUDIT-C Alcohol total score: 3 Non-prescribed substance use: denies use Caffeine: Yes How often does anyone, including family, friends and others, physically hurt you : never How often does anyone, including family, friends and others, insult or talk down to you: never How often does anyone, including family, friends and others, threaten you with harm: never How often does anyone, including family, friends and others, scream or curse at you: never Meds Home Medications and Allergies Home Medications ?Medication ?Instructions ?Recorded ?Confirmed ?Type atorvastatin 20 mg tablet 20 mg PO DAILY 05/15/22 09/22/24 History cholecalciferol (vitamin D3) 25 1,000 unit PO DAILY 05/15/22 09/22/24 History mcg (1,000 unit) capsule lisinopril 5 mg tablet 5 mg PO DAILY 05/15/22 09/22/24 History calcium carbonate (Calcium 600) 600 mg PO DAILY 09/26/23 09/22/24 History ferrous sulfate 325 mg (65 mg 325 mg PO Q7D 09/26/23 09/22/24 History iron) tablet (FeroSul) Allergies Allergy/AdvReac Type Severity Reaction Status Date / Time No Known Allergies Allergy Unknown Verified 09/22/24 08:58 Exam Narrative: Exam Narrative: General: No acute distress. Awake alert oriented x3. HEENT: Normocephalic atraumatic, pupils equally round and reactive to light and accommodation. Oropharynx clear. Mucous membranes are moist. No JVD. Cardiovascular: Regular rate and rhythm. No murmurs, gallops, or rubs. Chest: No increased work of breathing. Clear to auscultation bilaterally. No crackles or wheezes. Abdomen: Bowel sounds present. Soft, nondistended, nontender. No hepatosplenomegaly or masses. Extremities: Right knee bandage is clean, dry, and intact. No edema, no cyanosis or clubbing. Skin: No jaundice, no pallor, no rashes on visible skin. Const: Vital Signs, click to edit/add: Vital Signs - 24 hr 09/22/24 09:15 09/22/24 09:55 09/22/24 10:00 Temperature 97.8 F Pulse Rate 74 59 L 58 L Respiratory Rate 16 16 16 Blood Pressure 141/78 H 165/86 H 129/64 Pulse Oximetry 98 99 100 Oxygen Delivery Me thod Room Air Nasal Cannula Nasal Cannula Oxygen Flow Rate 3 3 09/22/24 11:55 09/22/24 12:00 09/22/24 12:05 Temperature 97.0 F L Pulse Rate 61 54 L 62 Respiratory Rate 16 16 16 Blood Pressure 86/44 L 91/44 L 90/63 Pulse Oximetry 97 96 96 Oxygen Delivery Me thod Room Air Room Air Room Air Oxygen Flow Rate 09/22/24 12:10 09/22/24 12:15 09/22/24 12:20 Temperature Pulse Rate 53 L 53 L 51 L Respiratory Rate 16 16 16 Blood Pressure 93/47 L 100/49 L 97/51 L Pulse Oximetry 96 96 97 Oxygen Delivery Me thod Room Air Room Air Room Air Oxygen Flow Rate 09/22/24 12:25 09/22/24 12:36 09/22/24 12:45 Temperature 97.0 F L 97.0 F L 97.2 F L Pulse Rate 50 L 57 L 51 L Respiratory Rate 16 14 16 Blood Pressure 96/50 L 98/59 L 95/53 L Pulse Oximetry 97 99 99 Oxygen Delivery Me thod Room Air Room Air Room Air Oxygen Flow Rate 09/22/24 13:00 09/22/24 13:15 09/22/24 13:30 Temperature Pulse Rate 51 L 54 L 54 L Respiratory Rate 16 16 16 Blood Pressure 98/58 L 111/61 117/57 L Pulse Oximetry 99 100 98 Oxygen Delivery Me thod Room Air Room Air Room Air Oxygen Flow Rate 09/22/24 14:00 Temperature Pulse Rate 52 L Respiratory Rate 16 Blood Pressure 130/62 Pulse Oximetry 98 Oxygen Delivery Me thod Room Air Oxygen Flow Rate Assessment and Plan Assessment and plan (1) Status post total knee replacement, right: Problem comment: - 09/22/24 Pavan - routine post op cares - pain control with ice, acetaminophen and opioids - VTE prophylaxis with BID low dose aspirin Status: Acute (2) Osteoarthritis of right knee: Problem comment: Severe, [id number] Status: Chronic (3) Hypertension: Problem comment: - hold lisinopril today and tomorrow morning. Resume upon returning home or sooner if hypertensive Status: Chronic (4) Hyperlipidemia: Problem comment: - resume atorvastatin Status: Acute
--- NOTE | 2024-09-22 19:04 | PC.NURSE ---
patient alert and oriented, up a1 walker and belt, rating pain in right knee 2-5/10 being managed with prn oxycodone and scheduled tylenol, tolerating regular diet.
[2024-09-22] MEDS: ONDANSETRON 2 MG/ML inj 4 MG IVP (20:54)
[2024-09-22] MEDS: SENNOSIDES 1 TAB TABLET 2 TAB PO (21:43)
[2024-09-22] MEDS: ASPIRIN 81 MG TABLET EC PO (21:46)
[2024-09-23] MEDS: CEFAZOLIN 1 GM in 0.9 % SODIUM CHLORIDE Mini-bag 100 ML IVPB (00:10)
[2024-09-23] MEDS: OXYCODONE 5 MG TABLET PO ×2 (00:23→08:08)
[2024-09-23 00:40] VITALS: BP 128/64; PULSE 66; RESP 18; TEMP 36.7; O2SAT 98
[2024-09-23 04:00] VITALS: BP 133/62; PULSE 75; RESP 18; TEMP 36.6; O2SAT 98
[2024-09-23] MEDS: ACETAMINOPHEN 500 MG TABLET 1000 MG PO ×2 (04:02→09:44)
--- NOTE | 2024-09-23 06:56 | PC.NURSE ---
Shift note ([id number]): Patient pleasant, alert and oriented. Ambulates with walker, gait belt and assist of one. Pt had a small emesis of undigested food at 1919. Pt reports was not feeling nauseated and that it just suddenly happened. PRN Zofran offered however pt declined reporting that she was not feeling nauseated and thought she just ate too much for supper. Educated to let staff know if any further emesis or nausea. Pt reported second emesis at 2044 and was given PRN Zofran at that time. No further c/o nausea or emesis episodes. Given scheduled Tylenol and PRN Oxycodone for right knee pain rated 5-6/10 with movement.?
[2024-09-23 07:00] VITALS: RESP 20; O2SAT 100
[2024-09-23 07:03] LABS: Basophils Absolute Auto 0.01 K/uL (0.00-0.30); Basophils Percent Auto 0.1 % (0.0-3.0); Hematocrit 34.3 % (33.0-51.0); Hemoglobin* 11.1 gm/dL (12.0-16.0); Immature Granulocytes Abs Auto 0.01 K/uL (0.00-0.30); Immature Granulocytes Pct Auto 0.1 %; Lymphocytes Percent Auto 12.3 % (20-44); Mean Corpuscular HGB Conc 32 gm/dL (32-36); Mean Corpuscular Hemoglobin 29 pg (26-34); Mean Corpuscular Volume 90 fL (80-100); Monocytes Percent Auto 11.3 % (0.0-11.0); Neutrophils Percent Auto 76.2 % (42.0-72.0); Platelet Count* 214 K/uL (140-440); RDW Coefficient of Variation % 12.8 % (11.5-15.5); Red Blood Count 3.82 m/uL (4.00-5.20)
[2024-09-23 07:22] LABS: Slide Review Reflex No
[2024-09-23 07:24] LABS: Potassium* 3.7 mmol/L (3.6-5.1); Sodium* 133 mmol/L (135-149)
[2024-09-23 07:27] LABS: Blood Urea Nitrogen* 16 mg/dL (7-30); Creatinine* 0.5 mg/dL (0.5-1.5); Estimated Glomerular Filt Rate 97 ml/min
[2024-09-23 07:50] VITALS: BP 112/57; PULSE 75; RESP 20; TEMP 36.6; O2SAT 100
[2024-09-23] MEDS: ATORVASTATIN 10 MG TABLET 20 MG PO (08:07)
[2024-09-23] MEDS: SENNOSIDES 1 TAB TABLET 2 TAB PO (08:07)
[2024-09-23] MEDS: ASPIRIN 81 MG TABLET EC PO (08:08)
--- NOTE | 2024-09-23 08:47 | P.ORPN_ITS ---
Subjective Subjective Date Seen: 09/23/24 Principal diagnosis: Status postop day 1 right total knee arthroplasty Interval history: Patient reports doing well. No acute events over night. Pain managed with scheduled and PRN medications, ice. DVT prophylaxis: 81 mg aspirin by mouth twice daily, SCDs, walking. Reports yesterday having 2-3 episodes of nausea and vomiting that has since resolved. She continues to try to progress her diet. No current nausea or vomiting. Denies fevers, chills, aches, N/V, CP, SOB/FINNEY, or lightheadedness. No flatus to date. Ortho Exam Narrative Exam Narrative: -Patient appears comfortable; no apparent acute distress -Alert and oriented times 3 -Operative knee mildly swollen; soft tissues supple; no ecchymosis; no erythem atous streaking Warmth appropriate -Surgical dressing clean, dry, intact; no drainage -Bilateral calfs soft; no significant swelling, edema, tenderness, erythema, discoloration, warmth, or palpable cords -2+ DP/PT pulses, intact dermatomes and myotomes distally (5/5 strength) Const Vital Signs, click to edit/add: Vital Signs - 24 hr 09/22/24 09:15 09/22/24 09:55 09/22/24 10:00 Temperature 97.8 F Pulse Rate 74 59 L 58 L Pulse Rate [Pulse Oximeter] Respiratory Rate 16 16 16 Blood Pressure 141/78 H 165/86 H 129/64 Blood Pressure [Right Arm] Pulse Oximetry 98 99 100 Oxygen Delivery Method Room Air Nasal Cannula Nasal Cannula Oxygen Flow Rate 3 3 09/22/24 11:55 09/22/24 12:00 09/22/24 12:05 Temperature 97.0 F L Pulse Rate 61 54 L 62 Pulse Rate [Pulse Oximeter] Respiratory Rate 16 16 16 Blood Pressure 86/44 L 91/44 L 90/63 Blood Pressure [Right Arm] Pulse Oximetry 97 96 96 Oxygen Delivery Method Room Air Room Air Room Air Oxygen Flow Rate 09/22/24 12:10 09/22/24 12:15 09/22/24 12:20 Temperature Pulse Rate 53 L 53 L 51 L Pulse Rate [Pulse Oximeter] Respiratory Rate 16 16 16 Blood Pressure 93/47 L 100/49 L 97/51 L Blood Pressure [Right Arm] Pulse Oximetry 96 96 97 Oxygen Delivery Method Room Air Room Air Room Air Oxygen Flow Rate 09/22/24 12:25 09/22/24 12:36 09/22/24 12:45 Temperature 97.0 F L 97.0 F L 97.2 F L Pulse Rate 50 L 57 L 51 L Pulse Rate [Pulse Oximeter] Respiratory Rate 16 14 16 Blood Pressure 96/50 L 98/59 L 95/53 L Blood Pressure [Right Arm] Pulse Oximetry 97 99 99 Oxygen Delivery Method Room Air Room Air Room Air Oxygen Flow Rate 09/22/24 13:00 09/22/24 13:15 09/22/24 13:30 Temperature Pulse Rate 51 L 54 L 54 L Pulse Rate [Pulse Oximeter] Respiratory Rate 16 16 16 Blood Pressure 98/58 L 111/61 117/57 L Blood Pressure [Right Arm] Pulse Oximetry 99 100 98 Oxygen Delivery Method Room Air Room Air Room Air Oxygen Flow Rate 09/22/24 14:00 09/22/24 14:30 09/22/24 15:00 Temperature 97.3 F L Pulse Rate 52 L 55 L Pulse Rate [Pulse Oximeter] Respiratory Rate 16 16 Blood Pressure 130/62 116/98 H Blood Pressure [Right Arm] Pulse Oximetry 98 98 98 Oxygen Delivery Method Room Air Room Air Oxygen Flow Rate 09/22/24 15:00 09/22/24 15:00 09/22/24 16:00 Temperature 97.0 F L Pulse Rate 54 L 58 L Pulse Rate [Pulse Oximeter] Respiratory Rate 16 16 16 Blood Pressure 103/68 123/64 Blood Pressure [Right Arm] Pulse Oximetry 98 98 96 Oxygen Delivery Method Room Air Room Air Room Air Oxygen Flow Rate 09/22/24 17:00 09/22/24 18:00 09/22/24 19:20 Temperature 97.3 F L Pulse Rate 58 L 71 69 Pulse Rate [Pulse Oximeter] Respiratory Rate 16 16 18 Blood Pressure 129/60 131/68 141/70 H Blood Pressure [Right Arm] Pulse Oximetry 98 100 98 Oxygen Delivery Method Room Air Room Air Room Air Oxygen Flow Rate 09/22/24 23:00 09/22/24 23:00 09/23/24 00:40 Temperature 98.1 F Pulse Rate Pulse Rate [Pulse Oximeter] 66 Respiratory Rate 18 Blood Pressure Blood Pressure [Right Arm] 128/64 Pulse Oximetry 98 98 98 Oxygen Delivery Method Room Air Room Air Oxygen Flow Rate 09/23/24 04:00 09/23/24 07:00 09/23/24 07:00 Temperature 97.9 F Pulse Rate Pulse Rate [Pulse Oximeter] 75 Respiratory Rate 18 Blood Pressure Blood Pressure [Right Arm] 133/62 Pulse Oximetry 98 100 100 Oxygen Delivery Method Room Air Room Air Oxygen Flow Rate 09/23/24 07:00 09/23/24 07:50 Temperature 97.9 F Pulse Rate Pulse Rate [Pulse Oximeter] 75 Respiratory Rate 20 20 Blood Pressure Blood Pressure [Right Arm] 112/57 L Pulse Oximetry 100 Oxygen Delivery Method Room Air Oxygen Flow Rate Assessment and Plan Assessment and plan (1) Status post total knee replacement, right: Problem details: - 09/22/24 Pavan - routine post op cares - pain control with ice, acetaminophen and opioids - VTE prophylaxis with BID low dose aspirin Status: Acute (2) Osteoarthritis of right knee: Problem details: Severe, [id number] Status: Chronic (3) Hypertension: Problem details: - hold lisinopril today and tomorrow morning. Resume upon returning home or sooner if hypertensive Status: Chronic (4) Hyperlipidemia: Problem details: - resume atorvastatin Status: Acute Plan - Complete 23 hour perioperative antibiotics. - PT/OT consult for education and assistance. - Social work consult for discharge planning - Prescribed analgesics as needed - DVT prophylaxis: 81 mg aspirin by mouth twice daily, walking, and SCDs - Anticipation is for discharge to home with family/friends today 09/23/2024 if the patient remains medically stable, pain is controlled, and they are safe with mobilization.
== END 2024-09-23 11:09 | disposition home or self-care (01) ==
LOC: OR 08:45 → MEDSURG 08:46
PROVIDERS: PCP Family Medicine; Visit Provider Orthopaedic Surgery Sports Medicine
PROC: (CPT 27447; principal; 2024-09-22 11:00)
DX: M17.11 Unilateral primary osteoarthritis, right knee (principal); G89.18 Other acute postprocedural pain; I10 Essential (primary) hypertension; G25.81 Restless legs syndrome; E78.5 Hyperlipidemia, unspecified; R11.2 Nausea with vomiting, unspecified; Z79.82 Long term (current) use of aspirin
CPT/HCPCS: 27447; 01402; 36415; 64447; 64454; 73560; 76942; 82565; 84132; 84295; 84520; 85025; 97110; 97116; 97161; 97165; 97530; 97535; 99100; A9270; C1776; J0665; J0666; J0690; J2250; J2405; J2704; J3010; J7120

== ENCOUNTER 2024-09-30 15:41 | Outpatient (CLI) | payer MEDICARE, BC, SELFPAY ==
--- NOTE | 2024-09-30 15:45 | CRLHL7_ITS ---
For Patients: As a result of the Century Cures Act, medical imaging exams and procedure reports are released immediately into your electronic medical record. You may view this report before your referring provider. If you have questions, please contact your health care provider. INDICATION: Pain and swelling. Recent right knee surgery. COMPARISON: None available. TECHNIQUE: Static and compression grayscale and spectral (including color) Doppler ultrasound of the right lower extremity. FINDINGS: Deep veins: The imaged right common femoral, deep femoral, superficial femoral, popliteal, posterior tibial, peroneal and contralateral left common femoral veins are patent and free of clot. Limited evaluation of the posterior tibial and peroneal veins, particularly the peroneal veins. Superficial veins: The imaged right great saphenous vein is patent and free of clot. Extravascular findings: No significant incidental findings. IMPRESSION: No evidence of DVT in the right lower extremity. Limited evaluation of the deep veins of the calf (posterior tibial and peroneal veins). Dictated by Bunny Joaquin MD @ 09/30/2024 5:06:24 PM (Electronically Signed)
== END 2024-09-30 15:42 | disposition home or self-care (01) ==
LOC: US 15:43
PROVIDERS: PCP Family Medicine; Visit Provider Physician Assistant Surgical
DX: M79.604 Pain in right leg (principal); R22.41 Localized swelling, mass and lump, right lower limb
CPT/HCPCS: 93971

== ENCOUNTER 2024-12-03 10:00 | Outpatient (RCR) | payer MEDICARE, BC, SELFPAY ==
--- NOTE | 2024-09-25 14:11 | PT.OPEX ---
PT [place] Outpatient Eval PT [facility] Outpatient Eval Start: 09/25/24 07:24 Freq: Status: Active Protocol: Document 09/25/24 07:25 GABRIELLE (Rec: 09/25/24 14:08 GABRIELLE [id number]) E-signed By Bunny Marks DPT Physical Therapy Outpatient Evaluation Insurance Information Recert Due Date 12/24/24 Insurance Name Medicare B Medical Diagnosis R TKA 09/22/24 DOS Treating Diagnosis R knee pain muscle weakness Referring MD gisela yee Subjective Subjective Camille comes into clinic 3 days post op from R TKA. She states she is doing as well as she can be in terms of function and pain. Spent the night in the hospital. Has been using fww to ambulate around. needing intermittent assist lifting RLE to get in and out of bed. Sleeping has been challenging even with medication Pain Comments 02/24 Date of Surgery (If applicable) 09/22/24 Current Work Status Retired Precautions Treatment Precautions/Contraindications htn Objective Other/Pertinent Objective GAIT/FUNCTIONAL MOBILITY ambulates with fww decreased pain increased UE use KNEE ROM R 7-60 with op 65 SLR flexion extensor lag of 15 degrees, mild-moderate pain quad set moderate strength contraction. Assessment Assessment/Impression POST-OP Patient presents with signs and symptoms consistent with diagnosis of R TKA, s/p 3 days post operative. Rehab potential is good . Beard impairments include: decreased ROM and strength of the extremity, poor balance and compensatory gait patterning, pain/limitations with functional activities such as squatting, walking, and climbing stairs. Skilled PT is required to address these beard impairments and to provide and progress with an appropriate home exercise program. Plan of Care Rehabilitation Potential Good Physical Therapy Goals TKA GOALS STG (within 5-6 weeks ) 1) Pt will improve knee AROM at least 0 to 90 for improved sit to stand transfers 2) Pt will demonstrate negative extensor lag during straight leg raise exercise with ability to complete at least 15 reps with 5 sec hold to improve strength for ambulation 3) Patient will demonstrate/ report ability to walk for 15- 20 minutes w/SPC with pain level <1/10, to allow for community and household ambulation. LTG: (within 10-12 weeks) 1) Pt will be indep with HEP for intermediate project manager management of pain/symptoms 2) Pt will improve knee AROM at least 0 to 120 for improved sit to stand transfers 3) Patient will ascend/descend at least 12 steps using single rail and reciprocal pattern to improve ease of mobility at home/community 4) Patient will demonstrate/ report ability to walk for 20- 30 minutes w/o AD with pain level <1/10, to allow for community and household ambulation. Coordination/Communication With Referral Source Treatment Plan/Direct Interventions Gait Training,Joint Mobilization,Manual Therapy, Neuromuscular Re-ed,Self-Care/ Home Management,Therapeutic Activities,Therapeutic Exercises Frequency/Duration 1-2 visits a week for 10-12 weeks Patient Will Be Discharged From Therapy Completion of LTG(s), Independent w/HEP, Independently Progressing Evaluation Billing Untimed Code Treatment Minutes 15 Complexity Low Certification Information Initial Certification Date 09/25/24 Ending Certification Date 12/24/24 Provider Signature Required Yes Provider Signature Shows Agreement With POC & Medical Necessity Physician NPI Number Write NPI# Here Physician Comment/Change : Physician Signature & Date Requested Please Sign/Date Here
--- NOTE | 2024-10-28 10:44 | PT.OPDNX ---
PT [facility] Daily Note [facility] Daily Note Start: 09/25/24 07:24 Freq: Status: Active Protocol: Document 10/28/24 07:11 GABRIELLE (Rec: 10/28/24 10:44 GABRIELLE [id number]) E-signed By Bunny Marks DPT PT OP Daily Progress Note Visit Information Note Type Daily Note,Recert/Progress Note Visit Number 10 Insurance Information Recert Due Date 01/26/25 Insurance Name Medicare B Medical Diagnosis R TKA 09/22/24 DOS Treating Diagnosis R knee pain muscle weakness Referring MD gisela yee Subjective Subjective Camille comes into clinic stating she is more sore and stiff, was trying to push her knee straightening more with new hep but seemed to aggravate the leg and make it harder to straighten. Less painful just stiff. Sleeping is improving Pain Comments -10/27 Date of Surgery (If applicable) 09/22/24 Precautions Treatment Precautions/Contraindications htn Home Exercise Home Exercise Comments Access Code: [email or web address] URL: [email or web address] Date: 09/25/2024 Prepared by: Bunny Marks Objective Other/Pertinent Objective GAIT/FUNCTIONAL MOBILITY ambulates without AD with limited heel strike due to limited TKE KNEE ROM R 4-117, 3-121 OP SLR flexion: can perform with 3-5 degree lag mild patellar tendon irritation 8 inch step up : able to perform reciprocally no pain just increased knee pressure 8 inch step down: able to perform reciprocally decreased eccentric control relies on ue more incision looks well healed, no scabbing, some medial joint line swelling Patient Instructed in Risks/Benefits Yes Therapeutic Exercise Therapeutic Exercise Minutes (minutes) 25 Therapeutic Exercise: To Restore recumbent bike x 8 min full Functional Status revolutions saq x 20 slr 2x 10 8 inch step up x 12 quad set in extension x 20 Manual Therapy Techniques Manual Therapy Minutes (minutes) 15 Manual Therapy Techniques prom knee flexion ext STM hamstring gastroc PA mobs tibial femoral Treatment Minutes Untimed Code Treatment Minutes 5 Timed Code Treatment Minutes 40 Total Treatment Time 45 Billing Units Manual Therapy Units 1 Therapeutic Exercise Units 2 Assessment/Impression Assessment/Impression Patient is a 74 year old female that presents with RTKA ~ 5 weeks post op. Patient reports 70% improvement with skilled physical therapy services. Patient has shown improvement in PT demonstrating decreased pain, increased range of motion, increased strength, and increased tolerance to activity-improved walking sleeping. Patient continues to present with pain, decreased ROM- specifically extension, decreased strength- specifically single leg biased activity, and decreased tolerance to activity- prolonged standing walking. Patient would benefit from continued skilled PT services to address these issues and to maximize function. Plan of Care Physical Therapy Goals TKA GOALS STG (within 5-6 weeks ) 1) Pt will improve knee AROM at least 0 to 90 for improved sit to stand transfers 2) Pt will demonstrate negative extensor lag during straight leg raise exercise with ability to complete at least 15 reps with 5 sec hold to improve strength for ambulation 3) Patient will demonstrate/ report ability to walk for 15- 20 minutes w/SPC with pain level <1/10, to allow for community and household ambulation. met LTG: (within 10-12 weeks) 1) Pt will be indep with HEP for buttermaker management of pain/symptoms 2) Pt will improve knee AROM at least 0 to 120 for improved sit to stand transfers 3) Patient will ascend/descend at least 12 steps using single rail and reciprocal pattern to improve ease of mobility at home/community 4) Patient will demonstrate/ report ability to walk for 20- 30 minutes w/o AD with pain level <1/10, to allow for community and household ambulation. not met Daily Plan of Care Continue per POC Recertification Information Recertification Start Date 10/28/24 Recertification Due Date 01/26/25 Discharge Note Date of First Visit for Therapy 09/25/24 Initial Primary Functional Limitations walking standing stairs Initial Pain Level 6/10
== END 2024-12-03 13:38 | disposition home or self-care (01) ==
PROVIDERS: PCP Family Medicine; Visit Provider Orthopaedic Surgery Sports Medicine
DX: M17.11 Unilateral primary osteoarthritis, right knee (principal); Z96.651 Presence of right artificial knee joint; M25.561 Pain in right knee; M62.81 Muscle weakness (generalized); Z51.89 Encounter for other specified aftercare
CPT/HCPCS: 97110; 97116; 97140; 97161; 97530; A9270; J2250; J3010